=== PATIENT | male | born 1945 | race Caucasian/White ===

== ENCOUNTER 2017-05-17 05:17 | Day surgery (SDC) | payer OTHER ==
[~2017-05-17] VITALS: Ht 175.3 cm; Wt 77.9 kg
[~2017-05-17 05:17] MED LIST: ASPIR 8181 M1 PO; CENTRUM SILVER1 EAC3 PO; IRON325 M1 PO
[2017-05-17 06:00] VITALS: BP 111/68
[2017-05-17 11:45] VITALS: BP 118/57
[2017-05-17 15:30] VITALS: BP 109/59
[2017-05-17 19:05] VITALS: BP 105/59
[2017-05-18 00:05] VITALS: BP 105/52
[2017-05-18 04:39] VITALS: BP 101/55
[2017-05-18 08:00] VITALS: BP 96/52
[2017-05-18] MEDS ORDERED: ASPIRIN EC325 MG PO (08:57)
[2017-05-18] MEDS ORDERED: OXYCODONE HCL5 MG PO (08:58)
== END 2017-05-18 10:41 | disposition home or self-care (01) ==
LOC: SDC 05:17 → 2SOUTH 09:30 → ENRESERV 09:49 → 2SOUTH 09:49 → ENRESERV 10:52 → 3EAST 11:06 → EDSTATUS 11:28 → SDC 11:28 → 3EAST 05-18 10:41
PROC: 0RRJ0J7 Replacement of Right Shoulder Joint with Synthetic Substitute, Glenoid Surface, Open Approach (ICD-10-PCS; principal; 2017-05-17)
DX: M19.011 Primary osteoarthritis, right shoulder (principal); J45.909 Unspecified asthma, uncomplicated; Z85.828 Personal history of other malignant neoplasm of skin; Z88.0 Allergy status to penicillin; Z87.891 Personal history of nicotine dependence
CPT/HCPCS: G0378; J0131; J0690; J1100; J1885; J2250; J2405; J2795; J3010; J7030; J7050